=== PATIENT | female | born 1945 | race Caucasian/White ===

== ENCOUNTER → 2016-03-18 | Outpatient (CLI) | payer MEDICARE, BC ==
[~2016-03-18] MED LIST: BENADRYL25 M2 PO; CELEXA 20MG20 MG/TAB PO; CO Q-1010 M1 PO; COENZYME Q-10100 M1 PO; CRANBERRY1 POW; CRANBERRY450 MG PO; ESTRADERM0.05 MG/24; LEVOXYL0.025 MG PO; LIORESAL 1010 MG/TAB PO; MAGNESIUM250 M1 PO; NAPROSYN 2250 MG/TAB PO; NATURAL POTASS595 MG PO; OCUVITE ADULT 51 SGL PO; PERCOCET 325 MG1 TA2 PO; POTASSIUM GLUC550 M1 PO; POTASSIUM GLUC595 M1 PO; THERAPEUTIC VIT1 CAP PO; [UNRECOGNIZED DRUG - REMARK] PO
== END ==
LOC: MC.RAD 12:58
DX: Z12.31 Encounter for screening mammogram for malignant neoplasm of breast (principal)

== ENCOUNTER → 2016-05-02 | Outpatient (CLI) | payer MEDICARE, BC | LOC: MHCPAIN 10:21 | DX: G89.29 Other chronic pain (principal); M50.90 Cervical disc disorder, unspecified, unspecified cervical region; R51 Headache | CPT/HCPCS: G0463 ==

== ENCOUNTER → 2016-07-28 | Outpatient (CLI) | payer MEDICARE, BC | LOC: MHCPAIN 09:52 | DX: G89.29 Other chronic pain (principal); M50.90 Cervical disc disorder, unspecified, unspecified cervical region; M54.81 Occipital neuralgia; R51 Headache | CPT/HCPCS: G0463 ==

== ENCOUNTER → 2016-07-31 | Outpatient (CLI) | payer MEDICARE, BC | LOC: MHCPAIN 11:03 | DX: M50.90 Cervical disc disorder, unspecified, unspecified cervical region (principal) ==

== ENCOUNTER → 2016-08-08 | Outpatient (CLI) | payer MEDICARE, BC | LOC: MHCPAIN 11:43 | DX: G89.29 Other chronic pain (principal); M50.90 Cervical disc disorder, unspecified, unspecified cervical region; M54.81 Occipital neuralgia; R51 Headache | CPT/HCPCS: G0463 ==

== ENCOUNTER 2016-10-28 08:55 | Day surgery (SDC) | payer MEDICARE, BC ==
[~2016-10-28] VITALS: Ht 167.6 cm; Wt 92.4 kg
[~2016-10-28 08:55] MED LIST changes: -COENZYME Q-10100 M1 PO; -CRANBERRY450 MG PO; -LIORESAL 1010 MG/TAB PO; -POTASSIUM GLUC595 M1 PO; -[UNRECOGNIZED DRUG - REMARK] PO
[2016-10-28 09:27] VITALS: BP 136/70; PULSE 70; TEMP 97.6
[2016-10-28] MEDS ORDERED: CRANBERRY450 MG PO (09:50)
[2016-10-28] MEDS ORDERED: POTASSIUM GLUC595 M1 PO (09:50)
[2016-10-28] MEDS ORDERED: COENZYME Q-10100 M1 PO (09:51)
[2016-10-28] MEDS ORDERED: [UNRECOGNIZED DRUG - REMARK] PO (09:52)
[2016-10-28] MEDS ORDERED: LIORESAL 1010 MG/TAB PO (09:53)
[2016-10-28 10:40] VITALS: BP 128/58; PULSE 67; TEMP 97.9
[2016-10-28 10:55] VITALS: BP 129/61; PULSE 62
[2016-10-28 11:10] VITALS: BP 112/54; PULSE 71
[2016-10-28 11:13] VITALS: BP 121/59; PULSE 69
== END 2016-10-28 11:40 | disposition home or self-care (01) ==
LOC: SDCO 08:55
DX: K52.9 Noninfective gastroenteritis and colitis, unspecified (principal); K64.0 First degree hemorrhoids; K57.30 Diverticulosis of large intestine without perforation or abscess without bleeding; K92.1 Melena
CPT/HCPCS: OP; J2250; J3010; J7030

== ENCOUNTER → 2016-12-24 | Outpatient (CLI) | payer MEDICARE, BC ==
[~2016-12-24] MED LIST changes: +COENZYME Q-10100 M1 PO; +CRANBERRY450 MG PO; +LIORESAL 1010 MG/TAB PO; +POTASSIUM GLUC595 M1 PO; +[UNRECOGNIZED DRUG - REMARK] PO
== END ==
LOC: SUN.DIA 16:20
DX: E11.9 Type 2 diabetes mellitus without complications (principal); Z71.3 Dietary counseling and surveillance
CPT/HCPCS: G0109

== ENCOUNTER → 2016-12-25 | Outpatient (CLI) | payer MEDICARE, BC | LOC: SUN.DIA 12:54 | DX: E11.9 Type 2 diabetes mellitus without complications (principal); E66.9 Obesity, unspecified; Z68.31 Body mass index [BMI] 31.0-31.9, adult; Z71.3 Dietary counseling and surveillance | CPT/HCPCS: G0108 ==

== ENCOUNTER → 2016-12-31 | Outpatient (CLI) | payer MEDICARE, BC | LOC: SUN.DIA 15:52 | DX: E11.9 Type 2 diabetes mellitus without complications (principal); E66.9 Obesity, unspecified; Z71.3 Dietary counseling and surveillance | CPT/HCPCS: G0109 ==

== ENCOUNTER → 2017-01-06 | Outpatient (CLI) | payer MEDICARE, BC | LOC: SUN.DIA 12:32 | DX: E11.9 Type 2 diabetes mellitus without complications (principal); E66.9 Obesity, unspecified; Z68.31 Body mass index [BMI] 31.0-31.9, adult; Z71.3 Dietary counseling and surveillance ==

== ENCOUNTER → 2017-01-07 | Outpatient (CLI) | payer MEDICARE, BC | LOC: SUN.DIA 09:27 | DX: E11.9 Type 2 diabetes mellitus without complications (principal); E66.9 Obesity, unspecified; Z71.3 Dietary counseling and surveillance | CPT/HCPCS: G0109 ==

== ENCOUNTER → 2017-01-14 | Outpatient (CLI) | payer MEDICARE, BC | LOC: SUN.DIA 08:44 | DX: E11.9 Type 2 diabetes mellitus without complications (principal); E66.9 Obesity, unspecified; Z71.3 Dietary counseling and surveillance | CPT/HCPCS: G0109 ==

== ENCOUNTER → 2017-03-19 | Outpatient (CLI) | payer MEDICARE, BC | LOC: MC.RAD 09:00 | DX: Z12.31 Encounter for screening mammogram for malignant neoplasm of breast (principal) ==

== ENCOUNTER 2017-04-04 22:43 | Inpatient (IN) | payer MEDICARE, BC ==
[~2017-04-04] VITALS: Ht 167.6 cm; Wt 83.0 kg
[2017-04-04 23:25] LABS: MEAN CELL VOLUME 87 fl (80.0-100.0); MEAN CORPUSCULAR HGB CONC 32 g/dl (33.0-37.0); MEAN PLATELET VOLUME 8.7 fl (7.4-10.4); PLATELET COUNT 408 K/mm3 (130-400); RED BLOOD COUNT 4.16 M/mm3 (4.10-5.30); REDCELL DISTRIBUTION WIDTH-CV 13.4 % (11.5-14.5)
[2017-04-04 23:27] LABS: HEMATOCRIT 36.1 % (37.0-47.0); HEMOGLOBIN 11.6 g/dl (12.5-16.0); MEAN CORPUSCULAR HEMOGLOBIN 28 pg (27.0-31.0)
[2017-04-04 23:33] LABS: ALBUMIN 3.3 gm/dL (3.5-5.0); BILIRUBIN,TOTAL 0.6 mg/dL (0.0-1.0); CALCIUM 8.2 mg/dL (8.4-10.2); CREATININE, serum 0.76 mg/dL (0.52-1.25); TOTAL PROTEIN 6.8 gm/dL (6.4-8.2)
[2017-04-04 23:37] LABS: BAND 55 % (0-10); LYMPHOCYTE 16 % (20.0-51.0); NEUTROPHILS 17 % (42.0-75.2)
[2017-04-04 23:38] LABS: PLATELET ESTIMATE INCREASED (NORMAL)
[2017-04-04 23:51] LABS: C-REACTIVE PROTEIN 20.5 mg/dL (0.0-0.9)
[2017-04-05] MEDS ORDERED: LIALDA 1.2 GM1.2 GM PO (01:00)
[2017-04-05] MEDS ORDERED: PROBIOTIC-MAJOR PO (01:01)
[2017-04-05] MEDS ORDERED: ANTI-DIARRHEAL2 MG PO (01:02)
[2017-04-05 01:26] LABS: COLLECTION METHOD CLEAN CATCH
[2017-04-05 01:31] LABS: MUCOUS Present /lpf; PH 6 (5-8); SQUAMOUS EPITHELIAL 0-2 /hpf; URINE APPEARANCE Clear; URINE BACTERIA Rare /hpf; URINE BILIRUBIN Negative (NEGATIVE); URINE BLOOD Negative (NEGATIVE); URINE COLOR Yellow; URINE GLUCOSE Negative (NEGATIVE); URINE KETONE Negative (NEGATIVE); URINE LEUKOCYTE ESTERASE Negative (NEGATIVE); URINE NITRATE Negative (NEGATIVE); URINE PROTEIN(semi-quant) Negative (NEGATIVE); URINE RBC 0-2 /hpf; URINE UROBILINOGEN Negative (NEGATIVE)
[2017-04-05 03:07] VITALS: BP 115/54; PULSE 82; TEMP 98.3
[2017-04-05 06:40] LABS: CALCIUM 7.8 mg/dL (8.4-10.2); CREATININE, serum 0.53 mg/dL (0.52-1.25); POTASSIUM 3.2 mmol/L (3.4-5.0)
[2017-04-05 07:02] LABS: MEAN CELL VOLUME 87 fl (80.0-100.0); MEAN CORPUSCULAR HGB CONC 33 g/dl (33.0-37.0); MEAN PLATELET VOLUME 8.7 fl (7.4-10.4); PLATELET COUNT 325 K/mm3 (130-400); RED BLOOD COUNT 3.46 M/mm3 (4.10-5.30); REDCELL DISTRIBUTION WIDTH-CV 13.6 % (11.5-14.5)
[2017-04-05 07:03] LABS: HEMOGLOBIN 9.8 g/dl (12.5-16.0); MEAN CORPUSCULAR HEMOGLOBIN 28 pg (27.0-31.0)
[2017-04-05 07:04] LABS: HEMATOCRIT 30.2 % (37.0-47.0)
[2017-04-05 07:40] VITALS: BP 105/53; PULSE 74; TEMP 97.3
[2017-04-05 07:47] LABS: BAND 35 % (0-10); LYMPHOCYTE 9 % (20.0-51.0); NEUTROPHILS 54 % (42.0-75.2); NUCLEATED RED BLOOD CELL 1 (0-6); PLATELET ESTIMATE NORMAL (NORMAL)
[2017-04-05 07:48] LABS: HYPOCHROMIA 1+
[2017-04-05 12:00] VITALS: BP 103/64; PULSE 70; TEMP 97.6
[2017-04-05 15:18] VITALS: BP 99/52; PULSE 71; TEMP 97.6
[2017-04-05 19:28] VITALS: BP 113/53; PULSE 81; TEMP 97.3
[2017-04-06 00:30] VITALS: BP 109/57; PULSE 96; TEMP 100.2
[2017-04-06 04:40] VITALS: BP 97/52; PULSE 76; TEMP 97.8
[2017-04-06 08:21] VITALS: BP 121/56; PULSE 81; TEMP 97.4
[2017-04-06 11:50] VITALS: BP 113/56; PULSE 84; TEMP 97.9
[2017-04-06 15:49] VITALS: BP 126/56; PULSE 87; TEMP 97.8
[2017-04-06 20:36] VITALS: BP 122/56; PULSE 88; TEMP 97.8
[2017-04-07] VITALS (11 sets, daily range): BP systolic 97–116; BP diastolic 40–85; PULSE 68–91; TEMP 97.4–99.3
[2017-04-07 06:57] LABS: MEAN CELL VOLUME 91 fl (80.0-100.0); MEAN CORPUSCULAR HGB CONC 31 g/dl (33.0-37.0); MEAN PLATELET VOLUME 8.8 fl (7.4-10.4); PLATELET COUNT 391 K/mm3 (130-400); RED BLOOD COUNT 2.93 M/mm3 (4.10-5.30)
[2017-04-07 07:04] LABS: HEMATOCRIT 26.6 % (37.0-47.0); HEMOGLOBIN 8.2 g/dl (12.5-16.0); MEAN CORPUSCULAR HEMOGLOBIN 28 pg (27.0-31.0)
[2017-04-07 07:21] LABS: CALCIUM 7.4 mg/dL (8.4-10.2); CREATININE, serum 0.54 mg/dL (0.52-1.25); POTASSIUM 3.1 mmol/L (3.4-5.0)
[2017-04-07 08:30] LABS: BAND 49 % (0-10); LYMPHOCYTE 29 % (20.0-51.0); NEUTROPHILS 21 % (42.0-75.2); NUCLEATED RED BLOOD CELL 1 (0-6); PLATELET ESTIMATE INCREASED (NORMAL)
[2017-04-08 01:02] VITALS: BP 109/55; PULSE 63; TEMP 98.2
[2017-04-08 04:08] VITALS: BP 103/51; PULSE 70; TEMP 97.4
[2017-04-08 06:27] LABS: MEAN CELL VOLUME 90 fl (80.0-100.0); MEAN CORPUSCULAR HGB CONC 31 g/dl (33.0-37.0); MEAN PLATELET VOLUME 8.5 fl (7.4-10.4); PLATELET COUNT 459 K/mm3 (130-400); RED BLOOD COUNT 3.32 M/mm3 (4.10-5.30); REDCELL DISTRIBUTION WIDTH-CV 14.3 % (11.5-14.5)
[2017-04-08 06:42] LABS: CALCIUM 7.9 mg/dL (8.4-10.2); CREATININE, serum 0.5 mg/dL (0.52-1.25); POTASSIUM 3.8 mmol/L (3.4-5.0)
[2017-04-08 06:47] LABS: HEMOGLOBIN 9.3 g/dl (12.5-16.0); MEAN CORPUSCULAR HEMOGLOBIN 28 pg (27.0-31.0)
[2017-04-08 07:47] VITALS: BP 110/43; PULSE 67; TEMP 97.9
[2017-04-08 08:26] LABS: BAND 51 % (0-10); HYPOCHROMIA 1+; LYMPHOCYTE 16 % (20.0-51.0); NEUTROPHILS 33 % (42.0-75.2); OVALOCYTES 1+; PLATELET ESTIMATE INCREASED (NORMAL)
[2017-04-08 11:48] VITALS: BP 98/49; PULSE 53; TEMP 97.5
[2017-04-08 16:52] VITALS: BP 114/47; PULSE 71; TEMP 98
[2017-04-08 20:05] VITALS: BP 113/50; PULSE 76; TEMP 97.4
[2017-04-09 01:03] VITALS: BP 109/62; PULSE 74; TEMP 97.6
[2017-04-09 04:44] VITALS: BP 120/56; PULSE 70; TEMP 97.5
[2017-04-09 07:51] VITALS: BP 116/54; PULSE 75; TEMP 97.3
[2017-04-09 08:08] LABS: BASO % 0.4 % (0.0-2.0); GRAN # 6.3 (1.4-6.5); GRAN % 79.3 % (42.2-75.2); LYMPH % 12.7 % (20.0-51.0); MEAN CELL VOLUME 89 fl (80.0-100.0); MEAN CORPUSCULAR HGB CONC 31 g/dl (33.0-37.0); MEAN PLATELET VOLUME 8.5 fl (7.4-10.4); MONO # 0.4 (0.1-0.6); MONO % 4.6 % (1.7-9.3); PLATELET COUNT 503 K/mm3 (130-400); RED BLOOD COUNT 3.35 M/mm3 (4.10-5.30); REDCELL DISTRIBUTION WIDTH-CV 14.4 % (11.5-14.5)
[2017-04-09 08:14] LABS: HEMATOCRIT 29.9 % (37.0-47.0); HEMOGLOBIN 9.4 g/dl (12.5-16.0); MEAN CORPUSCULAR HEMOGLOBIN 28 pg (27.0-31.0)
[2017-04-09 08:19] LABS: CALCIUM 8.1 mg/dL (8.4-10.2); CREATININE, serum 0.59 mg/dL (0.52-1.25); POTASSIUM 3.7 mmol/L (3.4-5.0)
[2017-04-09 12:23] VITALS: BP 133/59; PULSE 73; TEMP 97.7
[2017-04-09 16:51] VITALS: BP 114/56; PULSE 71; TEMP 97.3
[2017-04-09 20:26] VITALS: BP 110/49; PULSE 93; TEMP 97.2
[2017-04-10] VITALS: BP 122/60; PULSE 64; TEMP 97.8
[2017-04-10 04:31] VITALS: BP 119/56; PULSE 60; TEMP 98
[2017-04-10 07:22] LABS: MEAN CELL VOLUME 90 fl (80.0-100.0); MEAN CORPUSCULAR HGB CONC 31 g/dl (33.0-37.0); MEAN PLATELET VOLUME 8.5 fl (7.4-10.4); PLATELET COUNT 493 K/mm3 (130-400); RED BLOOD COUNT 3.27 M/mm3 (4.10-5.30); REDCELL DISTRIBUTION WIDTH-CV 14.5 % (11.5-14.5)
[2017-04-10 07:25] LABS: HEMATOCRIT 29.4 % (37.0-47.0); HEMOGLOBIN 9.2 g/dl (12.5-16.0); MEAN CORPUSCULAR HEMOGLOBIN 28 pg (27.0-31.0)
[2017-04-10 07:41] LABS: CREATININE, serum 0.67 mg/dL (0.52-1.25); POTASSIUM 3.3 mmol/L (3.4-5.0)
[2017-04-10 07:44] VITALS: BP 109/49; PULSE 64; TEMP 97.3
[2017-04-10] MEDS ORDERED: LIALDA 1.2 GM1.2 GM PO (08:52)
[2017-04-10] MEDS ORDERED: PROTONIX 40MG T40 MG PO (09:26)
[2017-04-10] MEDS ORDERED: PREDNISONE10 MG PO (09:31)
[2017-04-10 09:51] LABS: BAND 24 % (0-10); LYMPHOCYTE 15 % (20.0-51.0); MYELOCYTE 1 % (0-0); NEUTROPHILS 60 % (42.0-75.2); PLATELET ESTIMATE INCREASED (NORMAL)
== END 2017-04-10 15:23 | disposition home or self-care (01) | DRG 386 ==
LOC: COL.ER 22:43 → MEDICAL 04-05 01:25
PROVIDERS: Emergency Medicine; Internal Medicine; Internal Medicine Gastroenterology; Nurse Practitioner; Nurse Practitioner Family; Physician Assistant
PROC: 0DBN8ZX Excision of Sigmoid Colon, Via Natural or Artificial Opening Endoscopic, Diagnostic (ICD-10-PCS; principal; 2017-04-07 14:00)
DX: K51.911 Ulcerative colitis, unspecified with rectal bleeding (principal); E87.1 Hypo-osmolality and hyponatremia; E86.0 Dehydration; E87.6 Hypokalemia; D50.0 Iron deficiency anemia secondary to blood loss (chronic); E11.9 Type 2 diabetes mellitus without complications
CPT/HCPCS: 99223-AI; 99232-AI; 99233-AI; 99239; J1956; J2250; J2270; J2405; J2920; J3010; J3480; J7030; J7060; J7070; J7512; Q9967

== ENCOUNTER → 2017-05-06 | Outpatient (CLI) | payer MEDICARE, BC ==
[~2017-05-06] MED LIST changes: +ANTI-DIARRHEAL2 MG PO; +LIALDA 1.2 GM1.2 GM PO; +PREDNISONE10 MG PO; +PROBIOTIC-MAJOR PO; +PROTONIX 40MG T40 MG PO
== END ==
LOC: SUN.DIA 12:34
DX: E11.9 Type 2 diabetes mellitus without complications (principal); E66.9 Obesity, unspecified; Z71.3 Dietary counseling and surveillance

== ENCOUNTER → 2017-07-09 | Outpatient (CLI) | payer MEDICARE, BC | LOC: SUN.DIA 09:30 | DX: E11.9 Type 2 diabetes mellitus without complications (principal); E66.9 Obesity, unspecified; Z68.26 Body mass index [BMI] 26.0-26.9, adult; Z71.3 Dietary counseling and surveillance ==

== ENCOUNTER → 2018-01-07 | Outpatient (CLI) | payer MEDICARE, BC | LOC: SUN.DIA 09:29 | DX: E66.9 Obesity, unspecified (principal); E11.9 Type 2 diabetes mellitus without complications | CPT/HCPCS: G0108 ==

== ENCOUNTER → 2018-04-09 | Outpatient (CLI) | payer MEDICARE, BC | LOC: MC.RAD 14:00 | DX: Z12.31 Encounter for screening mammogram for malignant neoplasm of breast (principal) ==

== ENCOUNTER → 2019-01-13 | Outpatient (CLI) | payer MEDICARE, BC | LOC: DIA.ED 09:30 | DX: E11.9 Type 2 diabetes mellitus without complications (principal); E66.9 Obesity, unspecified | CPT/HCPCS: G0270 ==

== ENCOUNTER → 2019-04-28 | Outpatient (CLI) | payer MEDICARE, BC | LOC: MC.RAD 08:28 | DX: Z12.31 Encounter for screening mammogram for malignant neoplasm of breast (principal) ==

== ENCOUNTER 2019-05-06 20:18 | Emergency (ER) | payer MEDICARE, BC ==
[~2019-05-06] VITALS: Ht 165.1 cm; Wt 90.9 kg
[2019-05-06 20:38] VITALS: BP 179/86; TEMP 98.6
[2019-05-06] MEDS ORDERED: NORCO 325 MG-51 TAB PO (22:22)
[2019-05-06 22:32] VITALS: PULSE 81
== END 2019-05-06 22:34 | disposition home or self-care (01) ==
LOC: COL.ER 20:18
DX: K08.89 Other specified disorders of teeth and supporting structures (principal); Z90.710 Acquired absence of both cervix and uterus; Z88.2 Allergy status to sulfonamides; Z98.890 Other specified postprocedural states
CPT/HCPCS: J0561

== ENCOUNTER → 2020-01-12 | Outpatient (CLI) | payer MEDICARE, BC ==
[~2020-01-12] MED LIST changes: +NORCO 325 MG-51 TAB PO
== END ==
LOC: DIA.ED 09:26
DX: E11.9 Type 2 diabetes mellitus without complications (principal); E66.8 Other obesity; E03.9 Hypothyroidism, unspecified
CPT/HCPCS: G0270

== ENCOUNTER → 2020-05-01 | Outpatient (CLI) | payer MEDICARE, BC | LOC: MC.RAD 12:49 | DX: Z12.31 Encounter for screening mammogram for malignant neoplasm of breast (principal) ==

== ENCOUNTER → 2020-07-12 | Outpatient (CLI) | payer MEDICARE, BC | LOC: DIA.ED 08:46 | DX: E11.9 Type 2 diabetes mellitus without complications (principal) | CPT/HCPCS: G0270 ==

== ENCOUNTER → 2021-01-10 | Outpatient (CLI) | payer MEDICARE, BC | LOC: DIA.ED 00:46 | DX: E11.65 Type 2 diabetes mellitus with hyperglycemia (principal) | CPT/HCPCS: G0108 ==

== ENCOUNTER → 2021-05-23 | Outpatient (CLI) | payer MEDICARE, BC | LOC: MC.RAD 08:30 | DX: Z12.31 Encounter for screening mammogram for malignant neoplasm of breast (principal) ==

== ENCOUNTER → 2022-01-09 | Outpatient (CLI) | payer MEDICARE, BC | LOC: DIA.ED 09:34 | DX: E11.69 Type 2 diabetes mellitus with other specified complication (principal) | CPT/HCPCS: G0270 ==

== ENCOUNTER → 2023-07-20 | Outpatient (CLI) | payer MEDICARE, BC ==
[~2023-07-20] MED LIST changes: +ALPHA LIPOIC A200 M2 PO; +CLARITIN-D 10 M1 T24 PO; +MASON NATURAL2000 IU PO; +NATURAL MAGNES200 MG PO; +NATURE'S BLEND500 M1 PO; +PHARMASSURE ZIN50 MG PO; +ZOLOFT 100MG100 MG PO
== END ==
LOC: DIA.ED 10:11
DX: E11.65 Type 2 diabetes mellitus with hyperglycemia (principal)
CPT/HCPCS: G0108